=== PATIENT | male | born 1960 | race African-American/Black ===

== ENCOUNTER 2019-03-12 04:09 | Emergency (ER) | payer MEDICAID ==
[~2019-03-12] VITALS: Ht 180.3 cm; Wt 75.0 kg
[2019-03-12 15:47] VITALS: BP 144/90
== END 2019-03-12 15:50 | disposition home or self-care (01) ==
LOC: ER 04:09
DX: Z76.0 Encounter for issue of repeat prescription (principal); Z87.01 Personal history of pneumonia (recurrent)
CPT/HCPCS: 99283

== ENCOUNTER 2019-11-08 09:32 | Emergency (ER) | payer MEDICAID ==
[~2019-11-08] VITALS: Ht 172.7 cm; Wt 75.0 kg
[2019-11-08] MEDS ORDERED: SODIUM CHLORIDE 0.9% 1,000 ML IV ONE (09:48)
[2019-11-08] MEDS ORDERED: LEVETIRACETAM 500MG PREMIX 100 ML IV ONE (10:00)
[2019-11-08] MEDS ORDERED: DIPHENHYDRAMINE 50MG/ML VIAL IV ONE (10:15)
[2019-11-08 10:36] LABS: BASOPHILS % 1.4 % (0.0-2.0); HEMATOCRIT. 35.8 % (42.0-52.0); LYMPHOCYTES % 35.8 % (20.0-50.0); MEAN CORPUSCULAR HEMOGLOBIN 30.2 pg (28.0-32.0); MEAN PLATELET VOLUME 7.2 fl (7.4-10.4); MONOCYTES % 10.8 % (2.0-8.0); PLATELET 302 x1000/uL (130-400); RED BLOOD CELL COUNT 3.98 mill/uL (4.7-6.1); RED CELL DISTRIBUTION WIDTH 15.8 % (11.6-14.6)
[2019-11-08 10:42] LABS: CHLORIDE 108 mEq/L (98-107)
[2019-11-08 10:48] LABS: ETHANOL BLOOD < 10 mg/dL
[2019-11-08 10:55] LABS: CARBAMAZEPINE < 0.5 ug/mL (4-12)
[2019-11-08 11:19] LABS: PHENOBARBITAL < 2.1 ug/mL (15.0-40.0); VALPROIC ACID < 3.0 ug/mL (50-100)
[2019-11-08] MEDS ORDERED: PHENYTOIN SODIUM 1,000 MG in SODIUM CHLORIDE 0.9% 100 ML IV ONE (12:00)
[2019-11-08 14:22] VITALS: BP 141/66
== END 2019-11-08 14:24 | disposition home or self-care (01) ==
LOC: ER 09:42
DX: R56.9 Unspecified convulsions (principal); Z87.01 Personal history of pneumonia (recurrent)
CPT/HCPCS: 36415; 71045; 80053; 80156; 80165; 80184; 80185; 80320; 84484; 85025; 93005; 96365; 96367; 96375; 99285; J1165; J1200; J1953; J7030; J7050; G0480